=== PATIENT | female | born 1960 | race Caucasian/White ===

== ENCOUNTER 2023-04-27 20:42 | Emergency (ER) | payer BC ==
[2023-04-27] MEDS ORDERED: amLODIPine 5 MG TAB PO ONE (21:00)
[2023-04-27 21:16] LABS: BASO # 0.01 K/mm3 (0.02-0.10); EOS # 0.13 K/mm3 (0.04-0.40); EOS % 2.2 % (1.0-5.0); HEMATOCRIT 42.9 % (37.0-47.0); HEMOGLOBIN 13.5 g/dL (12.5-16.0); LYMPH# 0.71 K/mm3 (1.50-4.00); MEAN CELL VOLUME 89 fl (78-100); MEAN CORPUSCULAR HEMOGLOBIN 28 pg (27-31); MEAN CORPUSCULAR HGB CONC 32 g/dL (33-37); MEAN PLATELET VOLUME 10.1 fl (7.4-10.4); MONO # 0.96 K/mm3 (0.20-0.80); NEU # 4.02 K/mm3 (1.40-6.50); PLATELET COUNT 291 K/mm3 (130-400); RED BLOOD COUNT 4.84 M/mm3 (4.10-5.30); RED CELL DISTRIBUTION WIDTH 13.6 % (11.5-14.5); WHITE BLOOD COUNT 5.8 K/mm3 (4.8-10.8)
[2023-04-27 21:21] LABS: SODIUM 139 mmol/L (136-145)
[2023-04-27 21:22] LABS: CALCIUM 10.1 mg/dL (8.3-10.5)
[2023-04-27 21:23] LABS: GLUCOSE 101 mg/dL (65-105); TOTAL PROTEIN 7.8 g/dL (6.2-8.1)
[2023-04-27 21:24] LABS: CARBON DIOXIDE 24 mmol/L (23-31)
[2023-04-27 21:25] LABS: TOTAL BILIRUBIN 0.4 mg/dL (0.2-1.2)
[2023-04-27 21:28] LABS: AST-SGOT 21 U/L (5-34)
[2023-04-27 21:29] LABS: ALT/SGPT 32 U/L (0-55)
[2023-04-27 21:30] LABS: LIPASE 22 U/L (8-78)
[2023-04-27] MEDS ORDERED: LIPITOR 40MG TA40 MG PO (21:37)
[2023-04-27] MEDS ORDERED: VENLAFAXINE HYD75 MG PO (21:38)
[2023-04-27] MEDS ORDERED: WELLBUTRIN XL300 M1 PO (21:39)
[2023-04-27] MEDS ORDERED: METOPROLOL SUCC50 M1 PO (21:40)
[2023-04-27 21:41] LABS: TROPONIN-I < 0.030 ng/mL (0.00-0.033)
[2023-04-27] MEDS ORDERED: BENICAR40 MG PO (21:41)
[2023-04-27] MEDS ORDERED: cloNIDine 0.1 MG TAB PO ONE (21:45)
[2023-04-27 22:04] LABS: URINE APPEARANCE CLEAR (CLEAR); URINE BILIRUBIN NEGATIVE (NEGATIVE); URINE BLOOD NEGATIVE (NEGATIVE); URINE COLOR YELLOW (YELLOW); URINE GLUCOSE NEGATIVE (NEGATIVE); URINE KETONE NEGATIVE (NEGATIVE); URINE LEUKOCYTE ESTERASE NEGATIVE (NEGATIVE); URINE NITRATE NEGATIVE (NEGATIVE); URINE PROTEIN(semi-quant) NEGATIVE (NEGATIVE); URINE WBC 0-1 /hpf (0-3)
[2023-04-27] MEDS ORDERED: Iohexol 300 - 100 ML VIAL IV ONE (22:59)
[2023-04-27] MEDS ORDERED: Ondansetron 4 MG/2 ML VIAL IV ONE (23:00)
[2023-04-28] MEDS ORDERED: ZOFRAN ODT4 MG PO (00:24)
[2023-04-28 00:35] VITALS: BP 156/92
== END 2023-04-28 00:36 | disposition home or self-care (01) ==
LOC: ED 20:42
PROVIDERS: Nurse Practitioner
DX: D73.4 Cyst of spleen (principal); F41.9 Anxiety disorder, unspecified; I10 Essential (primary) hypertension
CPT/HCPCS: J2405; Q9967